=== PATIENT | female | born 1970 | race Caucasian/White ===

== ENCOUNTER 2021-03-26 03:32 | Emergency (ER) | payer MEDICARE, OTHER ==
[~2021-03-26 03:32] MED LIST: ABILIFY IM; BUTALB-ACETAMI1 EACH PO; EFFEXOR XR150 MG PO; FLEXERIL 10 MG10 MG PO; GABAPENTIN300 MG PO; IBU800 MG PO; KEFLEX500 MG PO; MICROZIDE12.5 MG PO; NORCO 10-325 T1 EACH PO; SYNTHROID100 MCG PO; VITAMIN C500 M4 PO; VITAMIN D250000 UNIT PO
[2021-03-26] MEDS ORDERED: DOXYCYCLINE HY100 M2 PO (05:45)
[2021-03-26] MEDS ORDERED: BENZONATATE200 MG PO (05:45)
== END 2021-03-26 06:00 | disposition home or self-care (01) ==
LOC: ER1 03:32
DX: J20.9 Acute bronchitis, unspecified (principal); Z20.822 Contact with and (suspected) exposure to COVID-19; E11.9 Type 2 diabetes mellitus without complications; F17.210 Nicotine dependence, cigarettes, uncomplicated
CPT/HCPCS: 71045; 99283; U0002